=== PATIENT | male | born 1985 ===

== ENCOUNTER 2018-10-02 08:36 | Emergency (ER) | payer BC ==
[2018-10-02 08:39] VITALS: RESP 18
[2018-10-02 08:57] VITALS: BMI 25.7
[2018-10-02] MEDS ORDERED: Sodium Chloride 0.9% 1,000 ML IV ONE (09:04)
[2018-10-02 09:36] LABS: BASO % 0.3 % (0.0-2.0); HEMOGLOBIN 16.6 g/dL (12.0-18.0); LYMPH # 1.3 K/uL (1.0-4.3); LYMPH % 12.6 % (20.0-40.0); MEAN CORPUSCULAR HEMOGLOBIN 30.2 pg (27.0-31.0); MEAN CORPUSCULAR HGB CONC 34.7 g/dL (33.0-37.0); MEAN PLATELET VOLUME 8.4 fL (7.2-11.7); MONO # 0.4 K/uL (0.0-0.8); MONO % 3.8 % (0.0-10.0); NEUT # 8.5 K/uL (1.8-7.0); NEUT % 83.3 % (50.0-75.0); NRBC % 0.1 % (0.0-2.0); RBC 5.48 Mil/uL (4.40-5.90); RED CELL DISTRIBUTION WIDTH 12.8 % (11.5-14.5); WHITE BLOOD COUNT 10.2 K/uL (4.8-10.8)
[2018-10-02] MEDS ORDERED: Sodium Chloride 0.9% 250 ML IV ONE (09:38)
[2018-10-02 09:47] LABS: ALB/GLOB RATIO 1.8 (1.0-2.1); ALBUMIN 5.3 g/dL (3.5-5.0); ALT/SGPT 57 U/L (21-72); AST/SGOT 30 U/L (17-59); BLOOD UREA NITROGEN 15 mg/dL (9-20); CALCIUM 9.8 mg/dl (8.6-10.4); GFR NON-AFRICAN AMERICAN > 60; LIPASE 44 U/L (23-300)
[2018-10-02 09:49] LABS: INR 1.1; PROTHROMBIN TIME 12.5 SECONDS (9.7-12.2)
--- NOTE | 2018-10-02 09:59 | C.PDOC ---
History Of Present Illness 32 yo male w/PMHx of HTN come in for evaluation of sudden onset of non-bilious, non-bloody vomiting since today 5 AM. Pt reports, " woke up and started to vomit, 5-7 episodes" associated with dizziness, near-syncope sx. Pt admits, " was drinking last night but not too much". Pt denies fever, chills, headache, visual changes, neck pain, CP, SOB, dyspnea, diaphoresis, palpitation, abd. pain, hemtemesis, melena, diarrhea, back pain, UTI sx, denies any sick contact. Ambulate to ED, noted vomiting in ED. Time Seen by Provider: 10/02/18 08:42 Chief Complaint (Nursing): GI Problem History Per: Patient Past Medical History Reviewed: Historical Data, Nursing Documentation, Vital Signs Vital Signs: Last Vital Signs Temp 99.1 F 10/02/18 08:39 Pulse 93 H 10/02/18 08:39 Resp 18 10/02/18 08:39 BP 150/99 H 10/02/18 08:39 Pulse Ox 95 10/02/18 08:39 - Medical History PMH: HTN Surgical History: Hernia Repair Family History: States: No Known Family Hx - Social History Hx Tobacco Use: No Hx Alcohol Use: Yes (social) Hx Substance Use: No - Immunization History Hx Tetanus Toxoid Vaccination: No Hx Influenza Vaccination: No Hx Pneumococcal Vaccination: No Review Of Systems Except As Marked, All Systems Reviewed And Found Negative. Constitutional: Negative for: Fever, Chills Eyes: Negative for: Vision Change ENT: Negative for: Throat Pain Cardiovascular: Positive for: Light Headedness. Negative for: Chest Pain, Palpitations, Edema Respiratory: Negative for: Cough, Shortness of Breath, Sputum, Wheezing Gastrointestinal: Positive for: Nausea, Vomiting. Negative for: Abdominal Pain, Diarrhea, Melena, Hematochezia, Hematemesis Genitourinary: Negative for: Dysuria, Frequency, Incontinence Musculoskeletal: Negative for: Neck Pain Skin: Negative for: Rash Neurological: Negative for: Weakness, Numbness, Altered Mental Status, Dizziness Physical Exam - Physical Exam Appears: Well, Non-toxic, No Acute Distress Skin: Normal Color, Warm, Dry, No Rash Head: Normacephalic Eye(s): bilateral: PERRL Nose: No Flaring, No Discharge Oral Mucosa: Moist, No Drooling Throat: No Erythema, No Drooling Neck: Trachea Midline, Supple Cardiovascular: Rhythm Regular, No Murmur, No JVD Respiratory: No Decreased Breath Sounds, No Accessory Muscle Use, No Stridor, No Wheezing Gastrointestinal/Abdominal: Soft, Tenderness (mild RLQ), No Distention, No Guarding, No Rebound Back: No CVA Tenderness Extremity: Normal ROM, No Deformity, No Swelling Neurological/Psych: Oriented x3, Normal Speech ED Course And Treatment - Laboratory Results Result Diagrams: 10/02/18 09:28 10/02/18 09:28 Lab Interpretation: No Acute Changes O2 Sat by Pulse Oximetry: 95 Pulse Ox Interpretation: Normal - CT Scan/US CT a/P Other Rad Studies (CT/US): Radiology Report Reviewed CT/US Interpretation: Accession No. : [id number]. Patient Name / ID : LAMAR PERALTA / [id number]. Exam Date : 10/02/2018 10:46:02 ( Approved ). Study Comment : Sex / Age : M / 32Y. Creator : Alonso Ma MD. Dictator : Alonso Ma MD. Rn Referral : Wildlife Veterinarian : Alonso Ma MD. Approver2 : Report Date : 10/02/2018 11:11:40. My Comment : . CT abdomen and pelvis. HISTORY: Right lower quadrant abdominal pain. Comparison: None available. Technique: Multiple contiguous axial images were performed through the abdomen and pelvis without the use of intravenous contrast. Subsequently, sagittal and coronal reformatted images were obtained. This CT exam was performed using one or more of the following dose reduction techniques: Automated exposure control, adjustment of the mA and/or kV according to patient size, and/or use of iterative reconstruction technique. Findings: Atelectasis at the lung bases. No pleural or pericardial effusion. Prominent liver with fatty infiltration. Gallbladder is preserved. Spleen is preserved. Adrenal glands are preserved. Pancreas is preserved. Upper abdominal bowel is preserved. Right kidney: No calculi or hydronephrosis. Left Kidney: No calculi or hydronephrosis. Urinary bladder is preserved. Heterogeneous prostate. Fecal retention in the colon. Scattered areas of underdistention of the colon. Appendix not well visualized. Few shotty para- aortic and mesenteric lymph nodes. Degenerative changes in the spine. Prominent posterior disc osteophyte complex at the L5-S1 level. Few shotty lymph nodes seen within the right lower quadrant of the abdomen which may represent a mesenteric adenitis. Impression: Fatty infiltration of liver. Few shotty lymph nodes within the right lower quadrant of the abdomen which may represent a mesenteric adenitis. Appendix not definitively identified on this study. Clinical correlation. Scattered areas of underdistention and or mild thickening of the colon particularly at the level of distal ascending, transv erse, and descending colon. Clinical correlation. Prominent posterior disc osteophyte complex at the L5-S1 level. Progress Note: Pt was OBS in ED for 3 hours and reports moderate improvement in sx. On re-eval, pt is afebrile, hemodynamicaly stable. NOn-toxic. Pt was able tolerate Po well in ED. Neck: SUpple. Lungs: CTA B/L, BS equal B/L. Abd: benign, (-) guarding, (-) rebound. Back: (-) CVA tenderness. Neurologicaly intact. Bood work review and appears without acute abnormalities. UA-no acute abnormalities. CT A/P: no acute pathology noted relaited to current sx. Pt has clinical findings c/w N/V. Pt advised. ref. to f/u with PMD, GI in2 -3 days for re-eval. return to ED if any worsening or new changes . Disposition Counseled Patient/Family Regarding: Studies Performed, Diagnosis, Need For Followup, Rx Given - Disposition Referrals: [facility] [Outside] Disposition: HOME/ ROUTINE Disposition Time: 11:21 Condition: STABLE Additional Instructions: Encourage fluids BRAT diet for 1-2 days- banana, rice, apple sauce, toast Take medication as prescribed Follow up with PMD, GI in 2-3 days for re-evaluation. return to Ed if any worsening or new changes. Prescriptions: Famotidine [Pepcid] 20 mg PO BID #20 tab Ondansetron ODT [Zofran ODT] 1 odt PO BID PRN #6 odt PRN Reason: Nausea/Vomiting Instructions: Nausea and Vomiting, Adult (DC) Forms: [employer] (Filipino) - Clinical Impression Clinical Impression: Nausea and vomiting
[2018-10-02] MEDS ORDERED: Iodixanol 320 MG/ML 100 ML BOTTLE IV ONE (10:31)
--- NOTE | 2018-10-02 11:15 | CT ---
CT abdomen and pelvis HISTORY: Right lower quadrant abdominal pain. Comparison: None available. Technique: Multiple contiguous axial images were performed through the abdomen and pelvis without the use of intravenous contrast. Subsequently, sagittal and coronal reformatted images were obtained. This CT exam was performed using one or more of the following dose reduction techniques: Automated exposure control, adjustment of the mA and/or kV according to patient size, and/or use of iterative reconstruction technique. Findings: Atelectasis at the lung bases. No pleural or pericardial effusion. Prominent liver with fatty infiltration. Gallbladder is preserved. Spleen is preserved. Adrenal glands are preserved. Pancreas is preserved. Upper abdominal bowel is preserved. Right kidney: No calculi or hydronephrosis. Left Kidney: No calculi or hydronephrosis. Urinary bladder is preserved. Heterogeneous prostate. Fecal retention in the colon. Scattered areas of underdistention of the colon. Appendix not well visualized. Few shotty para-aortic and mesenteric lymph nodes. Degenerative changes in the spine. Prominent posterior disc osteophyte complex at the L5-S1 level. Few shotty lymph nodes seen within the right lower quadrant of the abdomen which may represent a mesenteric adenitis. Impression: Fatty infiltration of liver. Few shotty lymph nodes within the right lower quadrant of the abdomen which may represent a mesenteric adenitis. Appendix not definitively identified on this study. Clinical correlation. Scattered areas of underdistention and or mild thickening of the colon particularly at the level of distal ascending, transverse, and descending colon. Clinical correlation. Prominent posterior disc osteophyte complex at the L5-S1 level.
[2018-10-02 11:32] LABS: URINE BILIRUBIN NEGATIVE (NEGATIVE); URINE BLOOD NEGATIVE (NEGATIVE); URINE CLARITY Clear (Clear); URINE COLOR Yellow (YELLOW); URINE GLUCOSE (UA) NORMAL (Normal); URINE LEUKOCYTE ESTERASE NEG Leu/uL (Negative); URINE PROTEIN 1+ mg/dL (NEGATIVE); URINE UROBILINOGEN NORMAL mg/dL (0.2-1.0)
[2018-10-02 11:50] VITALS: BP 127/81; PULSE 78; TEMP 98.4
[2018-10-02 11:53] LABS: BARBITURATES, UR NEGATIVE (NEGATIVE); BENZODIAZEPINES, UR NEGATIVE (NEGATIVE); OPIATES, UR NEGATIVE (NEGATIVE); PHENCYCLIDINE, UR NEGATIVE (NEGATIVE)
[2018-10-02 12:13] VITALS: O2SAT 95
== END 2018-10-02 12:00 | disposition home or self-care (01) ==
LOC: C.ER 08:36
DX: R11.2 Nausea with vomiting, unspecified (principal)
CPT/HCPCS: 74177; 80053; 81001; 83690; 85025; 85610; 85730; 87040; 87086; 87804; 96361; 96374; 96375; 99285; C9113; G0480; J2405; J7030; Q9967